=== PATIENT | female | born 1990 | race African-American/Black ===

== ENCOUNTER 2023-11-26 15:31 | Emergency (ER) | payer OTHER ==
[2023-11-26 16:13] VITALS: BP 119/81; O2SAT 100
--- NOTE | 2023-11-26 16:51 | ED Physician Documentation ---
History of Present Illness - Stated complaint Stated Complaint: R THUMB LAC - Chief complaint Chief Complaint: Laceration - History obtained from History obtained from: Patient - Additonal information Additional information: 32-year-old female presents with left thumb laceration after cutting it while peeling potatoes. She sustained a small laceration to the tip of the left thumb no other injuries. She believes she is up-to-date on tetanus having received it probably in 2022. PD PAST MEDICAL HISTORY - Past Medical History Past Medical History: No Cardiovascular: None Respiratory: None Neuro: None Endocrine/Autoimmune: None GI: None INSPECTOR: None : None HEENT: None Psych: None Musculoskeletal: None Derm: None - Past Surgical History Past Surgical History: No - Allergies Allergies/Adverse Reactions: Allergies Allergy/AdvReac Type Severity Reaction Status Date / Time No Known Drug Allergies Allergy Verified 11/26/23 16:08 - Social History Does the pt smoke?: No Smoking Status: Never smoker Does the pt drink ETOH?: Yes ETOH Use: Wine Does the pt have substance abuse?: No - Immunizations Immunizations are current?: Yes - POLST Patient has POLST: No PD ED PE NORMAL - Vitals Vital signs reviewed: Yes - General General: Alert and oriented X 3, No acute distress, Well developed/nourished - Derm Derm: Normal color, Warm and dry, Other (4 mm shallow laceration lateral aspect of the left thumb coming up just to the nail but not including the nail.) - Extremities Extremities: No deformity, Normal ROM s pain Results - Vitals Vitals: Vital Signs - 24 hr 11/26/23 16:02 Temperature 37.1 C Heart Rate 97 Respiratory 18 Rate Blood Pressure 119/81 H O2 Saturation 100 Oxygen O2 Source Room air PD Medical Decision Making - ED course Complexity details: d/w patient ED course: 32-year-old female presented with left thumb laceration as described in HPI. La ceration is shallow, and I do not think it would benefit from suture repair. I recommended we clean with Hibiclens and then glue which patient consented to. The wound was cleaned thoroughly and Dermabond applied with good wound edge approximation. I discussed home care instructions as well as return precautions of any signs of infection. Patient up-to-date on tetanus. Departure - Departure Disposition: 01 Home, Self Care Clinical Impression: Laceration of right thumb Qualifiers: Encounter type: initial encounter Damage to nail status: without damage Foreign body presence: without foreign body Qualified Code(s): S61.011A - Laceration without foreign body of right thumb without damage to nail, initial encounter Condition: Good Instructions: ED Laceration Facial Skin Glue Comments: Try to keep the wound dry for the next few days. The glue will slowly dissolve. If any signs of infection, return to the ER. Forms: PCP List
== END 2023-11-26 16:59 | disposition home or self-care (01) ==
LOC: ED 15:31
DX: S61.011A Laceration without foreign body of right thumb without damage to nail, initial encounter (principal); W26.0XXA Contact with knife, initial encounter; Y93.G1 Activity, food preparation and clean up
CPT/HCPCS: 12001; 99283